=== PATIENT | female | born 1960 | race Caucasian/White ===

== ENCOUNTER → 2017-01-28 | Outpatient (CLI) | payer MEDICARE ==
[2017-01-28 15:27] LABS: Basophils % (A) 1 %; CH 30.6; CHCM 32.8; Eosinophils # (A) 0.2 k/uL (0-0.7); Eosinophils % (A) 4 %; HDW 2.34; HGB 14.2 gm/dL (11.4-16.0); Luc # (Auto) 0.14; Luc % (Auto) 2; Lymphocytes # (A) 2.1 k/uL (1.0-4.8); Lymphocytes % (A) 35 %; MCH 30.9 pg (25.0-35.0); MCV 93.8 fL (80.0-100.0); Monocytes # (A) 0.3 k/uL (0-1.0); Monocytes % (A) 5 %; Neutrophils # (A) 3.1 k/uL (1.3-7.7); Neutrophils % (A) 53 %; RBC 4.59 m/uL (3.80-5.40); RDW 12.3 % (11.5-15.5); WBC 5.9 k/uL (3.8-10.6); WBC (Perox) 5.77
== END | disposition home or self-care (01) ==
LOC: LABPAT 14:55
PROVIDERS: ATTEND Obstetrics & Gynecology
DX: Z01.812 Encounter for preprocedural laboratory examination (principal)
CPT/HCPCS: 85025

== ENCOUNTER 2017-02-19 07:11 | Day surgery (SDC) | payer MEDICARE ==
[2017-02-18 09:03] VITALS: BMI 28.6
[~2017-02-19 07:11] MED LIST: DEXAMETHASONE SOD PHOSPHATE 10 MG/ML 1 ML VIAL IV ONE; HYDROmorphone 1 MG/ML 1 ML SYRINGE IVP PRN; LACTATED RINGERS 1,000 ML IV SCH; MIDAZOLAM 2 MG/2 ML VIAL IV PRN; ONDANSETRON 4 MG/2 ML VIAL IVP ONE; Pre Op ABX Message 1 EACH MISC MISCELLANE ONE
[2017-02-19] MEDS ORDERED: LIDOCAINE 1% 20 ML VIAL (10MG/ML) FOR IV START INTRADERMA ONE (07:39)
[2017-02-19] MEDS ORDERED: SCOPOLAMINE 1.5MG/72HR PATCH TRANSDERM ONE (07:46)
[2017-02-19] MEDS ORDERED: PROPOFOL 10 MG/ML 20 ML VIAL IV ONE (08:41)
[2017-02-19] MEDS ORDERED: SUCCINYLCHOLINE CHLORIDE 100 MG/5 ML SYR IV ONE (08:41)
[2017-02-19] MEDS ORDERED: fentaNYL (PF) 50 MCG/ML 2 ML AMP ONE (08:41)
[2017-02-19] MEDS ORDERED: LIDOCAINE 1% INJ 10MG/ML (20 ML MDV) ONE (08:41)
[2017-02-19] MEDS ORDERED: KETOROLAC 30 MG/ML 1 ML VIAL ONE (08:41)
[2017-02-19] MEDS ORDERED: MIDAZOLAM 2 MG/2 ML VIAL ONE (08:41)
[2017-02-19] MEDS ORDERED: VASOPRESSIN 20 UNIT/ML 1 ML VIAL SQ ONE (09:04)
[2017-02-19] MEDS ORDERED: ACETIC ACID 15 DROPS/ML DROPS MISCELLANE ONE (09:04)
[2017-02-19] MEDS ORDERED: FERRIC SUBSULFATE (MONSELS) JAR TOPICAL ONE (09:13)
--- NOTE | 2017-02-19 09:13 | P.OP ---
Date of Procedure: 02/19/17 Preoperative Diagnosis: HILLARY-3 of the cervix Postoperative Diagnosis: Pathology pending Procedure(s) Performed: Cold Knife conization, ECC Anesthesia: GETA Surgeon: Shannan Padilla Grave Digger #1: Stated None Estimated Blood Loss (ml): 20 Urine output (ml): 100 Pathology: other (Endocervical curetting, cervical conization specimen) Condition: stable Disposition: PACU Description of Procedure: Patient is brought to the operating suite and a general anesthetic is administered without difficulty. She's placed in dorsal lithotomy position. The cervix, vagina and perineal bodies are all prepped and draped in the usual sterile fashion. The appropriate timeout is performed to assure proper patient and procedural identification. The bladder is drained for 100 mL of clear yellow urine. Weighted speculum was placed into the vagina. Anterior lip of the cervix is grasped with a double-tooth tenaculum. Cervix is washed with acetoacetic acid and the previously biopsied site at 6:00 is visualized. Stay sutures of 0 Vicryl are placed on the cervix laterally, from 2:00 to 4:00 tied and held with a hemostat, and from 10:00 to 8:00 tied and held laterally. The cervix is then injected with dilute Pitressin solution. A sharp scalpel is used and the conization specimen is procured, suture tied at 12:00. An endocervical curettage was then performed. Specimens are sent under separate cover. The cervix is then cauterized with a ball cautery completely including the endocervical canal. Stay sutures are removed. Hemostasis is excellent. All sponge needle and enhancement counts are correct at the end of the procedure. Patient is brought back to recovery room in very good condition with stable vital signs including blood pressure 138/83, pulse 58, 98% O2 saturation. Patient is given Toradol prior to leaving the operative suite. She will follow- up with me in the office in 2 weeks.
[2017-02-19 09:32] VITALS: TEMP 97.8
[2017-02-19 10:18] VITALS: RESP 18
[2017-02-19 10:35] VITALS: BP 141/85; PULSE 64
== END 2017-02-19 11:10 | disposition home or self-care (01) ==
LOC: OR 07:11
PROVIDERS: ATTEND Obstetrics & Gynecology
DX: D06.9 Carcinoma in situ of cervix, unspecified (principal); I10 Essential (primary) hypertension; F32.9 Major depressive disorder, single episode, unspecified; K21.9 Gastro-esophageal reflux disease without esophagitis; Z79.899 Other long term (current) drug therapy; Z88.1 Allergy status to other antibiotic agents; F17.200 Nicotine dependence, unspecified, uncomplicated
CPT/HCPCS: 88305; 88307; 57520; J2250; J1100; J2405; J2001; J3010; J1885; J0330; J2704

== ENCOUNTER → 2017-06-21 | Outpatient (CLI) | payer MEDICARE ==
--- NOTE | 2017-06-21 12:47 | MR ---
EXAMINATION TYPE: MR cspine/lspine wo con DATE OF EXAM: 06/21/2017 COMPARISON: MRI of the C-spine and L-spine dated 04/05/2016. HISTORY: Cervicalgia, Low back pain TECHNIQUE: Multiplanar, multisequence imaging of the cervical spine and lumbar spine is performed wit hout IV contrast. FINDINGS: CERVICAL SPINE: The cervical spine maintains normal alignment. A T1 hyperintense and T2 hyperintense vertebral body hemangioma is seen at T2. Otherwise the bone marrow signal is unremarkable. The cervic al cord maintains normal signal throughout. The previously described patchy increased cord signal at C3-C4 and C7 is no longer visualized and again thought to be artifactual. No evidence of myelomalacia or cord edema. C1-C2: There is a central disc osteophyte complex narrowing the ventral subarachnoid space, however t here is subarachnoid fluid between the disc osteophyte complex and cervical cord. No evidence of sign ificant spinal canal stenosis or neural foraminal narrowing. C2-C3: Small central disc osteophyte complex is seen without spinal canal stenosis nor neural foramin al narrowing. C3-C4: No significant disc disease. No central canal stenosis or neural foraminal narrowing. C5-C6: Broad-based disc osteophyte complex, uncovertebral hypertrophy, ligamentum flavum buckling, an d mild facet arthropathy resulting in bilateral mild neural foraminal stenosis and spinal canal steno sis. C6-C7: Small central disc osteophyte complex is seen as well as mild uncovertebral hypertrophy withou t spinal canal stenosis or neural foraminal narrowing. C7-T1: No significant disc disease. No central canal stenosis or neural foraminal narrowing. LUMBAR SPINE: Vertebral body heights and alignment are maintained. Bone marrow signal is unremarkable. Conus medull charo is also unremarkable terminating at L1. Disc desiccation is present at L5-S1. Remaining interver tebral discs maintain normal hydration. T12-L5: No evidence of significant disc disease, neuroforaminal narrowing, or spinal canal stenosis. L5-S1: There is a broad-based disc bulge and facet arthropathy with ligamentum flavum buckling. No ev idence for spinal canal stenosis or neural foraminal stenosis. Annular fissure is again identified. IMPRESSION: 1. No evidence of disc herniation of the cervical or lumbar spine. 2. Previously questioned patchy increased cord signal at C3-C4 and C7 is no longer visualized and aga in thought to be artifactual. 3. Multilevel degenerative disc disease of the cervical spine, slightly progressed from the prior exa m. Mild spinal canal stenosis and bilateral neural foraminal narrowing are resultant at C5-C6. 4. Degenerative disc disease at L5-S1.
--- NOTE | 2017-06-21 14:02 | XR ---
Bilateral femurs HISTORY: Pain 2 views of both femurs are submitted on a total of 8 images. There are no priors for comparison. Patient shows intramedullary jimena in the right femur, there is cortical thickening as well as an angul ated fragment which appears healed and chronic extending from the proximal diaphysis the lateral and anterior orientation. No acute fracture or dislocation is evident. Osteoarthritic change is noted in the knees and bilateral hips. Possible heterotopic new bone at the right hip. IMPRESSION: Osteoarthritis in the hips and knees. Old trauma right femur. Correlation with prior imag es may be of benefit to assess for any interval changes.
--- NOTE | 2017-06-21 14:06 | XR ---
Bilateral feet HISTORY: Pain 3 views of both feet are submitted on a total 6 images Joint spaces and alignment are relatively maintained, mild degenerative change present at the metatar sophalangeal joints of the first digits, interphalangeal joints of the first digit. Postop change not ed to the distal right tibia and fibula. Bone mineralization is somewhat reduced on the right as comp ared to the left. Degenerative changes at the intertarsal joints are greater on the right than on the left. Lucencies in the right foot likely due to remote operative change. Correlate for appropriate h istory. Spurring also present tibiotalar joints. IMPRESSION: Osteoarthritis. Posttraumatic changes as described.
--- NOTE | 2017-06-21 14:08 | XR ---
Bilateral legs HISTORY: Pain 2 views of both legs are submitted The left leg shows normal bone mineralization, alignment. Small ossific densities distal to the media l malleolus are well-corticated and not felt likely to be acute. Spurring present at the tibiotalar j oints bilaterally. Mild joint space loss present in the medial compartment of the left knee. Patient is post open reduction internal fixation for distal fibular and tibial fractures on the right. Mild a ngulation suspected at the distal tibia. IMPRESSION: Postop changes, osteoarthritis.
== END ==
LOC: RADMRIMAIN 11:27
PROVIDERS: ATTEND Anesthesiology Pain Medicine
DX: M51.17 Intervertebral disc disorders with radiculopathy, lumbosacral region (principal); M99.71 Connective tissue and disc stenosis of intervertebral foramina of cervical region; M48.02 Spinal stenosis, cervical region; M50.10 Cervical disc disorder with radiculopathy, unspecified cervical region; M19.071 Primary osteoarthritis, right ankle and foot; M19.072 Primary osteoarthritis, left ankle and foot; Z98.890 Other specified postprocedural states
CPT/HCPCS: 72141; 72148

== ENCOUNTER → 2019-04-06 | Outpatient (CLI) | payer MEDICARE | END | disposition home or self-care (01) | LOC: LABWHC1 10:08 | PROVIDERS: ATTEND Psychiatry & Neurology Pain Medicine | DX: G37.9 Demyelinating disease of central nervous system, unspecified (principal) | CPT/HCPCS: 36415; 82040; 82042; 82784; 83916 ==

== ENCOUNTER → 2021-06-09 | Outpatient (CLI) | payer MEDICARE ==
--- NOTE | 2021-06-09 15:48 | XR ---
EXAMINATION TYPE: XR foot complete LT DATE OF EXAM: 06/09/2021 COMPARISON: 06/20/2017 HISTORY: Pain and swelling TECHNIQUE: Three views are submitted. FINDINGS: The osseous structures are intact. There is no acute fracture or dislocation. Mild arthropathy fir st MTP and DIP joint. Arthropathy of all DIP joints. No destructive change.. IMPRESSION: 1. No acute fracture or dislocation. If symptoms persist, follow-up exam in 7 to 10 days could be ob tained.
== END | disposition home or self-care (01) ==
LOC: RADXRYALE 15:06
PROVIDERS: ATTEND Psychiatry & Neurology Pain Medicine
DX: M79.672 Pain in left foot (principal)